=== PATIENT | male | born 1970 | race Caucasian/White ===

== ENCOUNTER 2017-04-01 10:38 | Inpatient (IN) | payer OTHER ==
[2017-04-01 11:00] LABS: Hematocrit 46.7 % (35.5-45.6); Hemoglobin 15.7 gm/dl (11.8-15.2); Mean Corpuscular HGB Conc 34 % (32-34); Mean Corpuscular Hemoglobin 30 pg (28-32); Mean Corpuscular Volume 91 fl (84-94); Platelet Count 218 K/mm3 (140-440); Red Blood Count 5.16 M/mm3 (3.65-5.03); Red Cell Distribution Width 13.7 % (13.2-15.2)
[2017-04-01 11:01] LABS: White Blood Count 23.1 K/mm3 (4.5-11.0)
[2017-04-01 11:18] LABS: Alanine Aminotransferase 20 units/L (7-56); Albumin 4.2 g/dL (3.9-5); Albumin/Globulin Ratio 1.4 %; Alkaline Phosphatase 97 units/L (35-129); Anion Gap 16 mmol/L; BUN/Creatinine Ratio 12.85; Blood Urea Nitrogen 9 mg/dL (9-20); Calcium 9.2 mg/dL (8.4-10.2); Carbon Dioxide 26 mmol/L (22-30); Chloride 97.4 mmol/L (98-107); Glucose 123 mg/dL (75-100); Lipase 15 units/L (13-60); Sodium 135 mmol/L (137-145); Total Protein 7.1 g/dL (6.3-8.2)
[2017-04-01 11:48] LABS: Bilirubin,Urine NEG (Negative); Blood,Urine SM (Negative); Ketones,Urine NEG (Negative); Leukocyte Esterase,Urine NEG (Negative); Mucus,Urine FEW /HPF; Nitrite,Urine NEG (Negative); Protein,Urine <15 mg/dL mg/dL (Negative); Urobilinogen,Urine < 2.0 mg/dL (<2.0); WBC,Urine < 1.0 /HPF (0.0-6.0)
[2017-04-01 12:19] LABS: Basophils % (Manual) 0 % (0.0-1.8); Blastocytes % (Manual) 0 %; Diff Status Complete; Eosinophils % (Manual) 0 % (0.0-4.3); RBC Morphology Normal
[2017-04-01] MEDS ORDERED: NACL 0.9% 1000 ML 1,000 ML IV ONE (18:32)
[2017-04-01] MEDS ORDERED: NACL ONE (18:47)
--- NOTE | 2017-04-01 18:48 | Emergency Department Report ---
HPI - General Chief Complaint: Abdominal Pain Time Seen by Provider: 04/01/17 18:23 - HPI HPI: This is a 47-year-old male presents the emergency department with complaint of abdominal pain that started yesterday as a mid abdominal burn and has since moved to the right side and become more sharp and intense, currently 10 out of 10 in pain. The pain was so bad that he passed out just outside of triage. He denies any fever, dysuria, problems with bowel or bladder, back pain , hematuria. He has not taken anything for his symptoms other than some omeprazole and he has a history of GERD and gastritis. He does not have a primary care physician. No recent travel or sick contacts at home. ED Past Medical Hx - Past Medical History Previous Medical History?: Yes Hx GERD: Yes Additional medical history: Gastritis - Surgical History Past Surgical History?: No - Social History Smoking Status: Current Every Day Smoker Substance Use Type: Prescribed - Medications Home Medications: Home Medications Medication Instructions Recorded Confirmed Last Taken Type No Known Home Medications [No 04/01/17 04/01/17 Unknown History Reported Home Medications] ED Review of Systems ROS: Stated complaint: ABD PAIN Other details as noted in HPI Comment: All other systems reviewed and negative Constitutional: denies: chills, fever Eyes: denies: eye pain, eye discharge, vision change ENT: denies: ear pain, throat pain Respiratory: denies: cough, shortness of breath, wheezing Cardiovascular: denies: chest pain, palpitations Gastrointestinal: abdominal pain. denies: vomiting Genitourinary: denies: urgency, dysuria Musculoskeletal: denies: back pain, joint swelling, arthralgia Skin: denies: rash, lesions Neurological: denies: headache, weakness, paresthesias Physical Exam - Physical Exam Vital Signs: Vital Signs 04/01/17 04/01/17 04/01/17 10:43 17:50 17:52 Temperature 98.7 F 99.4 F Pulse Rate 72 88 Respiratory 18 18 18 Rate Blood Pressure 133/82 Blood Pressure 120/76 [Right] O2 Sat by Pulse 99 97 97 Oximetry Physical Exam: GENERAL: The patient is well-developed well-nourished. HEENT: Normocephalic. Atraumatic. Extraocular motions are intact. Patient has moist mucous membranes. NECK: Supple. Trachea is midline. CHEST/LUNGS: Clear to auscultation. There is no respiratory distress noted. HEART/CARDIOVASCULAR: Regular. There is no tachycardia. There is no gallop rub or murmur. ABDOMEN: Abdomen is soft. The patient has moderate right lower quadrant tenderness to palpation. There is some mild guarding. No peritoneal signs. Patient has normal bowel sounds. There is no abdominal distention. SKIN: Skin is warm and dry. NEURO: The patient is awake, alert, and oriented. The patient is cooperative. The patient has no focal neurologic deficits. The patient has normal speech. MUSCULOSKELETAL: There is no tenderness or deformity. There is no limitation range of motion. There is no evidence of acute injury. ED Course Vital Signs 04/01/17 04/01/17 04/01/17 10:43 17:50 17:52 Temperature 98.7 F 99.4 F Pulse Rate 72 88 Respiratory 18 18 18 Rate Blood Pressure 133/82 Blood Pressure 120/76 [Right] O2 Sat by Pulse 99 97 97 Oximetry ED Medical Decision Making - Lab Data Result diagrams: 04/01/17 10:48 04/01/17 10:48 - Radiology Data Radiology results: report reviewed TECHNIQUE: CT abdomen and pelvis with intravenous contrast PRIORS: None. FINDINGS: No acute abnormality identified in the lung bases. No focal abnormality identified within the liver parenchyma. There is a 1.6 centimeter calcified focus within the lumen of the gallbladder. The spleen demonstrates normal size and attenuation. No pancreatic abnormalities seen. The kidneys demonstrate symmetric contrast enhancement. No evidence of hydronephrosis. There is a 1.6 centimeter lower pole right renal cyst. The adrenal glands are unremarkable Abdominal aorta is normal in caliber. No pathologically enlarged lymph nodes are identified. No signs of free fluid or free air No evidence of small bowel dilatation. The appendix is dilated measuring 0.8 centimeters. There is periappendiceal inflammatory stranding. No focal abscess collection identified. Urinary bladder is unremarkable. IMPRESSION: Findings consistent with acute appendicitis. No evidence for perforation or abscess Cholelithiasis with a 1.6 centimeter calculus in the gallbladder Lower pole right renal cyst - Medical Decision Making 47-year-old male presents the emergency department with about 24 hours of abdominal pain. On physical exam appears to be localized to the right lower quadrant. Labs show elevated white blood cell count and with physical examination there is high suspicion for appendicitis. CT of the abdomen and pelvis with IV contrast was done that confirmed appendicitis. Spoke to the general surgeon on-call, Dr. Sotelo, who has agreed to admit the patient to his service and says he will most likely secondary to the OR tomorrow late morning or early afternoon. Patient made nothing by mouth and started on Zosyn antibiotics. - Differential Diagnosis appendicitis, colitis, gastritis, diverticulitis Critical Care Time: No Critical care attestation.: If time is entered above; I have spent that time in minutes in the direct care of this critically ill patient, excluding procedure time. ED Disposition Clinical Impression: Acute appendicitis Qualifiers: Acute appendicitis type: with localized peritonitis Qualified Code(s): K35.3 - Acute appendicitis with localized peritonitis Leukocytosis Qualifiers: Leukocytosis type: unspecified Qualified Code(s): D72.829 - Elevated white blood cell count, unspecified Abdominal pain Qualifiers: Abdominal location: right lower quadrant Qualified Code(s): R10.31 - Right lower quadrant pain Disposition: 09 OP ADMIT IP TO THIS HOSP Is pt being admited?: Yes Condition: Stable
--- NOTE | 2017-04-01 19:29 | Admit Criteria Form ---
Admission Criteria Documentation: ABDOMINAL PAIN Clinical Indications for Admission to Inpatient Care (Place 'X' for any and all applicable criteria): Admission is indicated for ANY ONE of the following(1)(2)(3)(4)(5): [X ]I. Inpatient admission required rather than observation care (Also use Abdominal Pain: Observation Care, as appropriate) because of ANY ONE of the following: [X ]a) Severe pain requiring acute inpatient management [ ]b) Identification of etiology/finding that requires inpatient care (eg, aortic dissection, free air) [ ]c) Absent bowel sounds with complete ileus(6) [ ]d) Suspected toxic megacolon [ ]e) Severe electrolyte abnormalities requiring inpatient care [ ]f) High fever or infection requiring inpatient admission as indicated by ANY ONE of following(7)(8): [ ] i) Appropriate outpatient or observational care antimicrobial treatment unavailable, not effective, or not feasible [ ] ii) Documented bacteremia [ ] iii) Temperature > 104.9 degrees F (oral) [ ] iv) T >103.1 F (oral) or < 96.8 F(rectal) that does not respond to all emergency treatment measures [ ]g) Signs of intestinal obstruction [B] [ ]h) Hemodynamic instability [ ]i) IV fluid to replace significant ongoing losses (greater than 3 L/m2 per day) (12)(13) [ ]j) Percutaneous or open drainage (eg, abscess, biliary tract ) procedures [ ]k) Parenteral nutrition regimen that must be implemented on inpatient basis [ ]l) Other condition,treatment or monitoring requiring inpatient admission. [ ]II. Peritoneal signs present [X]III. Surgery needed that cannot be performed on an ambulatory basis. [ ]IV. Evaluation requires patient to not eat or drink for extended period ( eg, more than 24 hours). [ ]V. Contraindications and/or Inappropriate clinical situations for Observational Care in patients with abdominal pain, when ANY ONE of the following is required: [ ]a) Thorough evaluation is required to prevent catastrophic events due to delays in diagnosing (e.g.Mesenteric ischemia) 1,3 [ ]b) Patient with severe pathology or with chronic symptoms unlikely to improve in the ED stay (3) [ ]. General contraindications and/or Inappropriate clinical situations for Observational Care in patients with abdominal pain, when ANY ONE of the following is required: [ ]a) Prediction of prolongation of LOS based on ANY ONE of the following may be considered as a contraindication for observational care 2, 3, 4, 5, 6, 7, 8, 9, 10, 11 [ ]i) Age > 65 yrs. [ ]ii) Patient arriving by ambulance [ ]iii) Patient with high acuity [ ]iv) Patient requiring vital sign monitoring [ ]v) Patient on IV medication [ ]b) Systolic blood pressures 180mmHg 3,12 [ ]c) Patient with altered mental status including delirium and other alteration of consciousness, (3) [ ]d) Patient whose discharge disposition will be to a long term home or rehabilitation home should not be managed in Emergency Department Observation Unit. CMS rule requires 3 days hospital stay before such placement.3,13 [ ]e) Patient with failure to thrive due to broad array of etiologies 3,16,17 [ ]f) Inability to ambulate 3,14 Extended stay beyond goal length of stay may be needed for(2)(3): [ ]a) Persistent abdominal pain with suspected intra-abdominal process [ ]b) Diagnosed condition requiring continued stay (e.g., pancreatitis, complicated diverticulitis) [ ]c) Surgery (e.g., colectomy) The original [facility] content created by [employer] has been revised. The portions of the content which have been revised are identified through the use of italic text or in bold, and [facility] has neither reviewed nor approved the modified material.All other unmodified content is copyright [facility]. Please see references footnoted in the original [facility] edition 2016 Admission Criteria Met: Yes
--- NOTE | 2017-04-01 20:17 | Cat Scan Report ---
FINAL REPORT EXAM: CT ABDOMEN PELVIS W CON HISTORY: abd pain TECHNIQUE: CT abdomen and pelvis with intravenous contrast PRIORS: None. FINDINGS: No acute abnormality identified in the lung bases. No focal abnormality identified within the liver parenchyma. There is a 1.6 centimeter calcified focus within the lumen of the gallbladder. The spleen demonstrates normal size and attenuation. No pancreatic abnormalities seen. The kidneys demonstrate symmetric contrast enhancement. No evidence of hydronephrosis. There is a 1.6 centimeter lower pole right renal cyst. The adrenal glands are unremarkable Abdominal aorta is normal in caliber. No pathologically enlarged lymph nodes are identified. No signs of free fluid or free air No evidence of small bowel dilatation. The appendix is dilated measuring 0.8 centimeters. There is periappendiceal inflammatory stranding. No focal abscess collection identified. Urinary bladder is unremarkable. IMPRESSION: Findings consistent with acute appendicitis. No evidence for perforation or abscess Cholelithiasis with a 1.6 centimeter calculus in the gallbladder Lower pole right renal cyst
[2017-04-01] MEDS ORDERED: ZOSYN/NS 4.5GM/100ML 4.5 GM/100 ML VIAL IV ONE (20:20)
[2017-04-01] MEDS ORDERED: ZOFRAN IV PRN (20:56)
[2017-04-01] MEDS ORDERED: DILAUDID IV ONE (20:59)
[2017-04-01] MEDS ORDERED: NACL 0.9% 1000 ML 1,000 ML IV SCH (21:00)
[2017-04-01] MEDS ORDERED: FLAGYL 500 MG/100 ML 500 MG/100 ML BAG IV SCH (21:00)
[2017-04-01] MEDS: MORPHINE IV PRN (23:45)
[2017-04-02] MEDS ORDERED: FLAGYL 500 MG/100 ML 500 MG/100 ML BAG IV ONE (03:00)
[2017-04-02] MEDS ORDERED: ZOSYN/NS 4.5GM/100ML 4.5 GM/100 ML VIAL IV SCH (06:00)
[2017-04-02] MEDS: MORPHINE IV PRN ×3 (07:54→18:01)
[2017-04-02] MEDS: ZOSYN/NS 4.5GM/100ML 4.5 GM/100 ML VIAL IV SCH ×3 (08:46→23:59)
--- NOTE | 2017-04-02 08:57 | XRay Report ---
AP CHEST :04/01/17 18:31:00 CLINICAL: Cough. COMPARISON:None. FINDINGS: Normal heart and pulmonary vasculature. The lungs are clear. The bones and soft tissues are normal. IMPRESSION: Normal chest.
[2017-04-02] MEDS ORDERED: VERSED IV NR (10:00)
[2017-04-02] MEDS ORDERED: REGLAN IV NR ×2 (10:00→13:00)
[2017-04-02] MEDS ORDERED: NACL 0.9% 1000 ML 1,000 ML IV SCH (10:00)
--- NOTE | 2017-04-02 12:24 | Anesthesia Day of Surgery ---
Anesthesia Day of Surgery - Day of Surgery Patient Examined: Yes Patient H&P Reviewed: Yes Patient is NPO: Yes
--- NOTE | 2017-04-02 12:25 | Anesthesia Consultation ---
Anesthesia Consult and Med Hx Date of service: 04/02/17 - Airway Anesthetic Teeth Evaluation: Good ROM Head & Neck: Adequate Mental/Hyoid Distance: Adequate Mallampati Class: Class II Intubation Access Assessment: Probably Good - Pulmonary Exam CTA: Yes - Cardiac Exam Cardiac Exam: RRR - Pre-Operative Health Status ASA Pre-Surgery Classification: ASA2 Proposed Anesthetic Plan: General - Pulmonary Hx Smoking: Yes Hx Asthma: No COPD: No Hx Pneumonia: No - Gastrointestinal Hx Ulcer: No (GASTRITIS) Hx Gastroesophageal Reflux Disease: Yes - Endocrine Hx End Stage Renal Disease: No - Other Systems Hx Obesity: Yes
[2017-04-02] MEDS ORDERED: DECADRON ONE (12:57)
[2017-04-02] MEDS ORDERED: DILAUDID ONE (12:57)
[2017-04-02] MEDS ORDERED: DIPRIVAN 10 MG/ML IV ONE (12:57)
[2017-04-02] MEDS ORDERED: XYLOCAINE MPF 2% ONE (12:57)
[2017-04-02] MEDS ORDERED: ZEMURON IV ONE (12:57)
[2017-04-02] MEDS ORDERED: ZOFRAN ONE (12:57)
[2017-04-02] MEDS ORDERED: ZOFRAN IV PRN (13:00)
[2017-04-02] MEDS: PEPCID IV NR ×2 (13:00→13:05)
[2017-04-02] MEDS ORDERED: PEPCID IV SCH (13:00)
[2017-04-02] MEDS ORDERED: NACL 0.9% IR ONE (13:08)
[2017-04-02] MEDS ORDERED: ROBINUL ONE (14:44)
[2017-04-02] MEDS ORDERED: NEOSTIGMINE ONE (14:44)
[2017-04-02] MEDS: DILAUDID IV PRN ×4 (14:48→15:22)
--- NOTE | 2017-04-02 15:17 | Post Anesthesia Evaluation ---
- Post Anesthesia Evaluation Patient Participated: Yes Airway Patent: Yes Stable Respiratory Function: Yes Nausea/Vomiting: No Temp > 96.8F: Yes Pain Manageable: Yes Adequeate Hydration: Yes Anesthesia Complications: No Block Receding Appropriately: Not Applicable Patient on Ventilator: No
[2017-04-02] MEDS: D5W/0.45% NACL/KCL 20 MEQ 20 MEQ/1,000 ML BAG IV SCH (16:05)
--- NOTE | 2017-04-02 17:25 | Operative Report ---
PREOPERATIVE DIAGNOSIS: Acute appendicitis. POSTOPERATIVE DIAGNOSIS: Acute appendicitis, retrocecal. SURGERY: Appendectomy, open. ANESTHESIA: General. BLOOD LOSS: Minimal. FINDINGS: The patient had quite a long appendix that was in the retrocecal area. We had to dig the cecum anteriorly and medially to reach it. It was really stuck with lots of acute adhesive tissue. This on examination ____ anything specific. ANESTHESIA: General. BLOOD LOSS: About 100 mL. PROCEDURE IN DETAIL: With the patient in supine position, prepped and draped in usual fashion. I made an incision in the right lower ____ of the abdomen, deep subcutaneous tissue all the way down to fascia, which was incised along its fibers. Then, the muscles were transected using electrocautery. I was able to reach the peritonealm cavity_. It was opened. I could not see the appendix since it is deep into the retrocecal area, had to reflect the cecum anteromedially to reach its base at which point it was suture ligated using for that purpose 0 Vicryl [id number] x 2. Then, the appendix removed in toto all the way within the retrocecal aspect. I was really satisfied that we had good hemostasis. The area was then irrigated with sterile normal saline. Then, the wound was closed in layers. I used #1 Vicryl interruptedly for the multiple fascias and the skin with cyrus giving some spaces to drain the subcutaneous tissue and for that purpose 2 x 2 therese. I did leave a drain in the area #19 Donn through a small stab wound incision in the mid lower abdomen. The patient was then transferred to the recovery room in good condition. JOB# [id number] CHAY/BRAYAN ESCALONA
[2017-04-02] MEDS: FLAGYL 500 MG/100 ML 500 MG/100 ML BAG IV SCH (17:57)
[2017-04-03] MEDS: DILAUDID IV PRN ×4 (00:06→21:00)
[2017-04-03] MEDS: D5W/0.45% NACL/KCL 20 MEQ 20 MEQ/1,000 ML BAG IV SCH (00:52)
[2017-04-03] MEDS: FLAGYL 500 MG/100 ML 500 MG/100 ML BAG IV SCH ×4 (00:53→18:47)
[2017-04-03 09:14] LABS: Basophils % (Auto) 0.2 % (0.0-1.8); Hematocrit 37.7 % (35.5-45.6); Hemoglobin 12.8 gm/dl (11.8-15.2); Mean Corpuscular HGB Conc 34 % (32-34); Mean Corpuscular Hemoglobin 31 pg (28-32); Mean Corpuscular Volume 91 fl (84-94); Platelet Count 165 K/mm3 (140-440); Red Blood Count 4.16 M/mm3 (3.65-5.03); Red Cell Distribution Width 13.8 % (13.2-15.2); White Blood Count 18.3 K/mm3 (4.5-11.0)
[2017-04-03] MEDS ORDERED: MILK OF MAGNESIA PO ONE ×3 (11:11→23:00)
--- NOTE | 2017-04-03 11:15 | Progress Note ---
Subjective Patient Reports: Positive: feels better, still having pain, pain is less Narrative: feels and looks much better Pt says pain is gone! will advance diet MOM ,home late this PM .BTO in 08/01 days Objective Vital Signs - 12hr 04/02/17 04/03/17 04/03/17 23:50 06:51 07:43 Temperature 98.7 F 98.7 F 98.9 F Pulse Rate [ 82 86 66 Brachial] Respiratory 16 16 18 Rate Blood Pressure 124/76 124/73 112/75 [Left Arm] O2 Sat by Pulse 99 98 Oximetry - Labs 04/03/17 08:19 04/01/17 10:48
[2017-04-04] MEDS: FLAGYL 500 MG/100 ML 500 MG/100 ML BAG IV SCH ×3 (06:00→12:09)
[2017-04-04] MEDS: D5W/0.45% NACL/KCL 20 MEQ 20 MEQ/1,000 ML BAG IV SCH (07:54)
[2017-04-04 12:26] VITALS: BP 121/76
== END 2017-04-04 13:35 | disposition home or self-care (01) | DRG 343 ==
LOC: ED 10:38 → 2B-SURG 20:55
PROVIDERS: ADMIT Surgery; ATTEND Surgery
PROC: 0DTJ0ZZ Resection of Appendix, Open Approach (ICD-10-PCS; principal; 2017-04-02)
DX: K35.80 Unspecified acute appendicitis (principal); D72.829 Elevated white blood cell count, unspecified; K21.9 Gastro-esophageal reflux disease without esophagitis; F17.210 Nicotine dependence, cigarettes, uncomplicated
CPT/HCPCS: 36415; 71010; 74177; 80053; 81001; 83690; 84443; 84484; 85007; 85025; 87040; 88302; 88304; 93005; 93010; 96361; 96365; J1100; J1170; J2250; J2270; J2405; J2543; J2704; J2710; J2765; J7030; Q9967